=== PATIENT | female | born 1965 | race Caucasian/White ===

== ENCOUNTER 2019-01-23 09:29 | Day surgery (SDC) | payer BC, OTHER ==
[~2019-01-23] VITALS: Ht 154.9 cm; Wt 81.6 kg
--- NOTE | ~2019-01-23 | O ---
[facility] [place] [address] OPERATIVE REPORT Name: NESHA GONZALES Room #: [address] [place] [address] M.R.#: [id number] Admission: 01/23/19 Attend Phys: Almas Muniz Discharge: Date of : 69 Report #: [id number] THIS REPORT FOR: //name// CC: FARHAN Cummings Physician staff PREOPERATIVE DIAGNOSES: Right shoulder pain, superior labral tear, biceps tendinopathy, acromioclavicular joint arthrosis. POSTOPERATIVE DIAGNOSES: Right shoulder pain, complex labral tear, long head of biceps tendon tear, articular-sided partial thickness rotator cuff tear of the supraspinatus, subacromial bursitis, acromioclavicular joint arthrosis. PROCEDURES PERFORMED: Right shoulder arthroscopy, debridement of partial thickness rotator cuff tear, arthroscopic biceps tenodesis, excision of distal clavicle, extensive debridement. SURGEON: Almas Cummings MD DISH MACHINE OPERATOR: Debi Ferguson PA-C. ANESTHESIA: General with preoperative ultrasound-guided interscalene block. FLUIDS: 800 mL of crystalloid. ESTIMATED BLOOD LOSS: Negligible. DESCRIPTION OF PROCEDURE: After proper identification of the patient and operative site in preoperative holding area, the operative site was signed by myself, prophylactic antibiotics given. The patient elected to receive an ultrasound-guided block after reviewing the risks, benefits, alternatives and potential complications with anesthesia/Dr. Day. After a satisfactory block, the patient was brought back to the operative suite. After induction of satisfactory general anesthesia, the right shoulder was examined. It was stable throughout full arc of motion comparable to the preoperative assessment. No obvious ligamentous instability was noted. The patient was carefully positioned in the left lateral decubitus position. [place] bag and axillary roll were utilized to support the torso. Right shoulder was sterilely prepped and draped in usual manner and placed in 10 pounds of balanced arthroscopic suspension. Posterior portal was established, joint was inflated with an arthroscopic pump set at 40 mmHg. An anterosuperior portal was then created. Examination of the glenohumeral joint revealed extensive labral fraying and tearing of the anterior, superior and posterosuperior quadrants. This extended into the root of the biceps tendon with a high-grade partial thickness tear of its attachment on the superior labrum. Frayed portion of the labrum was carefully debrided with motorized shaver as well as frayed portion of the biceps. Tendon grasping [address] [address] OPERATIVE REPORT Name: NESHA GONZALES Room #: 150[address] [facility] Larry#: [id number] Admission: 01/23/19 Attend Phys: Almas Muniz Discharge: Date of : 69 Report #: [id number] stitch was applied with #2 FiberWire in an arthro mccarty device. Chondral surfaces of the humeral head and glenoid appeared intact. The more inferior labrum was intact. No evidence of tearing of the subscapularis was noted. On the articular side of the supraspinatus, some fraying of the rotator cuff was appreciated, which was carefully debrided. No significant uncovering of the footprint was noted. At this point, the arthroscope was introduced into subacromial space. A thickened subacromial bursa was encountered. Rotator cuff was intact from the bursal surface. No significant fraying on the undersurface of the coracoacromial arch was appreciated. Acromioclavicular joint arthrosis was noted and a distal clavicle excision was performed with the motorized bur. Approximately 8-10 mm of bone was resected here. Care was taken to not leave a superior bony shelf or rim of tissue. A 10 mm grasper could easily be opened within the joint space. At this point, the lateral portion of the bicipital groove was opened. Tendon was delivered out an anterolateral portal and a whipstitch was placed on the tendon more distally based to where there was no evidence of tendinopathy. After this was applied, frayed end of the tendon was trimmed and debrided and then Arthrex proximal biceps tenodesis button was used within the bicipital groove to tenodese the tendon. This laid down nicely, was tied with a #2 FiberWire and was stable to probing. Subacromial space was thoroughly irrigated with normal saline. Portals closed with simple nylon stitch. Sterile dressing was applied. The patient will be immobilized in a sling and abduction pillow for 4 weeks postoperatively. Qualified assistant football coach was utilized throughout the entire procedure to aid in patient limb positioning, visualization with the arthroscope instrument and suture passage as well as closure and sling application. By: [id number] Almas Cummings MD /truong
[~2019-01-23 09:29] MED LIST: ALPRAZOLAM 0.0.25 M1 PO; AZATHIOPRINE50 MG PO; CELEXA 20 MG TA20 M1 PO; FOLIC ACID1 MG PO; HYDROCODON-ACE1 EAC7 PO; HYOSCYAMINE0.375 MG PO; LOSARTAN-HCTZ1 EAC2 PO; MELOXICAM7.5 MG PO; MOBIC15 MG PO; NAPROSYN500 MG PO; NORVASC 5 MG TAB5 MG PO; PANTOPRAZOLE SO40 M1 PO; REMICADE 1100 MG/VIA; TRAMADOL 50 MG50 MG PO
[2019-01-23 10:14] LABS: CALCIUM 9.8 mg/dL (8.5-10.1); CREATININE 1.1 mg/dL (0.6-1.0); POTASSIUM 3.5 mmol/L (3.5-5.1)
[2019-01-23 10:48] VITALS: BP 111/76
[2019-01-23 13:38] VITALS: BP 111/76
--- NOTE | 2019-01-24 17:00 | EKG ---
[place] [address] [facility] [employer] [place] [address] ELECTROCARDIOGRAM REPORT Name: NESHA GONZALES [id number] Admission: 01/23/19 Attend Phys: Almas Muniz Discharge: 01/23/19 Date of : 69 Report #: [id number] THIS REPORT FOR: //name// [facility] Test Date: 2019-01-23 Test Time: 10:05:51 Pat Name: NESHA GONZALES Department: Room: 150 11 Gender: F Pulp Beater: shaila : 1965 Requested By: Almas Cummings Order Number: [id number] MD: Nghia Gutiérrez Measurements Intervals [place] Rate: 80 P: 33 RI: 145 QRS: 24 QRSD: 96 T: 3 QT: 386 QTc: 446 Interpretive Statements Sinus rhythm Abnormal R-wave progression, early transition No previous ECG available for comparison Electronically Signed On 01-24-2019 17:00:35 TURN DOWN ATTENDANT by Nghia Gutiérrez [email or web address] <ELECTRONICALLY SIGNED> By: Nghia Gutiérrez MD, [facility] 01/24/19 1700 1005 1005 Nghia Gutiérrez MD, FACC /EPI
== END 2019-01-23 14:55 | disposition home or self-care (01) ==
LOC: OR 09:29 → TBA 09:34 → OR 13:05
PROVIDERS: Orthopaedic Surgery Sports Medicine
DX: M25.511 Pain in right shoulder (principal); M19.011 Primary osteoarthritis, right shoulder; S46.111A Strain of muscle, fascia and tendon of long head of biceps, right arm, initial encounter; M75.111 Incomplete rotator cuff tear or rupture of right shoulder, not specified as traumatic; M75.51 Bursitis of right shoulder; I10 Essential (primary) hypertension; K21.9 Gastro-esophageal reflux disease without esophagitis; K50.90 Crohn's disease, unspecified, without complications; Z98.890 Other specified postprocedural states; Z79.899 Other long term (current) drug therapy; Z98.0 Intestinal bypass and anastomosis status; Z90.49 Acquired absence of other specified parts of digestive tract; Z90.710 Acquired absence of both cervix and uterus; Z88.0 Allergy status to penicillin; Z87.891 Personal history of nicotine dependence; Z88.2 Allergy status to sulfonamides; Z88.8 Allergy status to other drugs, medicaments and biological substances; X58.XXXA Exposure to other specified factors, initial encounter; Y93.89 Activity, other specified; Y92.89 Other specified places as the place of occurrence of the external cause; Y99.8 Other external cause status
CPT/HCPCS: 50010; 50101; 50172; 50386; 50417; 50597; 50950; 51038; 51320; 51445; 51847; 52282; 52313; 53610; 54170; 55430; 56527; 56530; 57103; 62110; 62900; 64039; 70005